=== PATIENT | male | born 1965 | race Two or more races ===

== ENCOUNTER 2017-10-07 12:33 | Inpatient (IN) | payer MEDICAID ==
[~2017-10-07] VITALS: Ht 170.2 cm; Wt 86.2 kg
--- NOTE | 2017-10-07 13:50 | NUR ---
REPORT GIVEN TO NYDIA VILLANUEVA FOR MADDIE
[2017-10-07 14:00] VITALS: BP 113/79
[2017-10-07 14:15] VITALS: BP 113/79
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
[2017-10-07] MEDS ORDERED: MAG HYDROX/AL HYDROX/SIMETH 30 ML UDC PO PRN (15:00)
[2017-10-07] MEDS ORDERED: MAGNESIUM HYDROXIDE 30 ML UDC PO PRN (15:00)
[2017-10-07] MEDS ORDERED: ACETAMINOPHEN 325 MG TABLET PO PRN (15:00)
[2017-10-07] MEDS ORDERED: HYDROCODONE/APAP 5/325MG 1 EACH TABLET PO PRN (15:00)
[2017-10-07] MEDS ORDERED: ONDANSETRON HCL/PF 4 MG/2 ML VIAL IVP PRN (15:00)
[2017-10-07] MEDS ORDERED: Z GUARD REMEDY 2 OZ OINT TP PRN (15:00)
[2017-10-07] MEDS ORDERED: ZOLPIDEM TARTRATE 5 MG TABLET PO PRN (15:00)
[2017-10-07 16:00] VITALS: BP 110/58
[2017-10-07] MEDS ORDERED: BENA40TA2 PO (16:31)
[2017-10-07] MEDS ORDERED: DIVA250T4 PO (16:31)
[2017-10-07] MEDS ORDERED: BIMA2.5D5 EACHEYE (16:31)
[2017-10-07] MEDS ORDERED: ASPI81TA2 PO (16:31)
[2017-10-07] MEDS ORDERED: CLON0.5T PO (16:31)
[2017-10-07] MEDS ORDERED: ROPI0.5T2 PO (16:31)
[2017-10-07] MEDS ORDERED: LEVO25TA9 PO (16:31)
[2017-10-07] MEDS ORDERED: clonazePAM 0.5 MG TABLET PO PRN (17:30)
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
[2017-10-07 20:00] VITALS: BP 127/74
[2017-10-07 20:02] VITALS: BP 127/74
[2017-10-07] MEDS: LATANOPROST EYE DROP 0.005% 2.5 ML BOTTLE EACHEYE SCH (21:02)
[2017-10-07] MEDS ORDERED: BIMATOPROST 2.5 ML DROPS OP SCH (22:00)
--- NOTE | 2017-10-08 06:21 | NUR ---
MS RN CLOSING NOTES PT IS IN BED RESTING, REFUSED BLOOD DRAW. LAB WILL COME BACK LATER TO TRY AGAIN. NO SIGNS OF SOB OR DISTRESS. ALL NEEDS WERE ANTICIPATED AND MET. BED IS IN LOW AND LOCKED POSITION, CALL LIGHT WITHIN REACH. WILL ENDORSE TO DAY SHIFT
--- NOTE | 2017-10-08 07:54 | NUR ---
RN OPENING NOTES RECEIVED PT. PT IS STABLE AND SLEEPING IN BED. PER RETAIL CLERK REPORT, A/OX3, HOWEVER PT IS CONFUSED. NO S/S OF DISTRESS OR SOB. NO C/O PAIN AT THIS TIME. AM LABS TO BE DRAWN IN AM. SAFETY MEASURES IN PLACE, CALL LIGHT WITHIN REACH. WILL CONTINUE TO MONITOR.
[2017-10-08 08:00] VITALS: BP 115/71
[2017-10-08] MEDS: ropiniROLE 0.5 MG TABLET PO SCH (08:35)
[2017-10-08] MEDS: ASPIRIN 81 MG TAB.CHEW PO SCH (08:35)
[2017-10-08] MEDS: BENAZEPRIL HCL 20 MG TABLET PO SCH (08:36)
[2017-10-08] MEDS: LEVOTHYROXINE SODIUM 25 MCG TABLET PO SCH (08:36)
[2017-10-08] MEDS: DIVALPROEX SODIUM 250 MG TABLET.DR PO SCH (08:38)
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
[2017-10-08 16:00] VITALS: BP 113/70
--- NOTE | 2017-10-08 18:37 | NUR ---
RN CLOSING NOTES PT IS IN ROOM RESTING IN BED. A/OX3, HOWEVER PT IS CONFUSED. 1:1 SITTER IS AT BEDSIDE. NO S/S OF SOB OR RESPIRATORY DISTRESS. PT DOES NOT APPEAR TO STILL BE AGITATED, HOWEVER CONTINUED CLOSE MONITORING IS STILL INDICATED. AWAITING PSYCH CONSULT FROM DR. NIXON. ALL PT NEEDS ANTICIPATED AND MET. SAFETY MEASURES IN PLACE, CALL LIGHT WITHIN REACH. WILL ENDORSE TO REGULATORY ANALYST FOR MADDIE.
[2017-10-08 20:00] VITALS: BP 126/78
[2017-10-08] MEDS: LATANOPROST EYE DROP 0.005% 2.5 ML BOTTLE EACHEYE SCH (21:20)
--- NOTE | 2017-10-09 06:33 | NUR ---
MS RN NOTES AWAKE & RESPONSIVE. NOT IN ANY DISTRESS. NO SOB NOTED. DENIES ANY PAIN OR DISCOMFORT AT THIS TIME. MONITORED ACCORDINGLY. CALL LIGHT WITHIN REACH. BED IN LOWEST POSITION. SR UP X 2 FOR SAFETY WITH SITTER AT BEDSIDE. WILL ENDORSE TO NEXT SHIFT.
--- NOTE | 2017-10-09 07:10 | NUR ---
RN NOTES PT IS SLEEPING COMFORTABLY IN BED, NO SIGNS OF DISTRESS NOTED. PT ON RA, RESPIRATIONS ARE EVEN AND UNLABORED. SITTER IS AT BEDSIDE. SAFETY MEASURES ARE IN PLACE, CALL LIGHT IS IN REACH. WILL CONTINUE TO MONITOR.
[2017-10-09] MEDS: LEVOTHYROXINE SODIUM 25 MCG TABLET PO SCH (07:59)
[2017-10-09 08:00] VITALS: BP 125/64
[2017-10-09] MEDS: ropiniROLE 0.5 MG TABLET PO SCH (08:00)
[2017-10-09] MEDS: BENAZEPRIL HCL 20 MG TABLET PO SCH (08:00)
[2017-10-09] MEDS: DIVALPROEX SODIUM 250 MG TABLET.DR PO SCH ×2 (08:00→16:26)
[2017-10-09] MEDS: ASPIRIN 81 MG TAB.CHEW PO SCH (08:00)
[2017-10-09 16:00] VITALS: BP 113/81
--- NOTE | 2017-10-09 18:33 | NUR ---
RN NOTES PT IS SLEEPING COMFORTABLY IN BED WITH SITTER AT BEDSIDE. PT SHOWS NO SIGNS OF AGGRESSION OR CONFUSION. PT ON RA, RESPIRATIONS ARE EVEN AND UNLABORED. ALL MEDS WERE GIVEN ORDERED AND PT NEEDS MET. SAFETY MEASURES ARE IN PLACE, CALL LIGHT IS IN REACH. WILL ENDORSE TO COMPOSITE SCIENCE TEACHER RN FOR CONTINUITY OF CARE.
[2017-10-09 20:00] VITALS: BP 124/78
[2017-10-09] MEDS: LATANOPROST EYE DROP 0.005% 2.5 ML BOTTLE EACHEYE SCH (21:06)
--- NOTE | 2017-10-10 07:01 | NUR ---
RN NOTES PT IS RESTING IN BED COMFORTABLY WITH SITTER AT BEDSIDE. PT ON RA, RESPIRATIONS ARE EVEN AND UNLABORED, NO SIGNS OF DISTRESS NOTED. SAFETY MEASURES ARE IN PLACE, CALL LIGHT IS IN REACH. WILL CONTINUE TO MONITOR.
[2017-10-10 08:00] VITALS: BP 132/76
[2017-10-10] MEDS: BENAZEPRIL HCL 20 MG TABLET PO SCH (08:21)
[2017-10-10] MEDS: ASPIRIN 81 MG TAB.CHEW PO SCH (08:21)
[2017-10-10] MEDS: LEVOTHYROXINE SODIUM 25 MCG TABLET PO SCH (08:21)
[2017-10-10] MEDS: ropiniROLE 0.5 MG TABLET PO SCH (08:21)
[2017-10-10] MEDS: DIVALPROEX SODIUM 250 MG TABLET.DR PO SCH ×2 (08:22→16:19)
[2017-10-10 13:00] VITALS: BP 151/76
[2017-10-10 16:00] VITALS: BP 120/81
--- NOTE | 2017-10-10 18:51 | NUR ---
RN NOTES PT IS SLEEPING IN BED WITH COVERS OVER HIS FACE, WITH SITTER AT BEDSIDE. PT ON RA, RESPIRATIONS ARE EVEN AND UNLABORED. ALL MEDS WERE GIVEN ORDERED AND PT NEEDS MET. SAFETY MEASURES ARE IN PLACE, CALL LIGHT IS IN REACH. WILL ENDORSE TO SHIP CONSTRUCTION TEACHER RN FOR CONTINUITY OF CARE.
--- NOTE | 2017-10-10 19:55 | NUR ---
MS RN NOTE: PATIENT RESTING IN BED, NO ACUTE DISTRESS NOTED. BREATHING EVEN AND UNLABORED, NO SOB NOTED. BED LOCKED AND IN LOWEST POSITION, CALL LIGHT IN REACH. WILL CONTINUE TO MONITOR.
[2017-10-10 20:00] VITALS: BP 118/72
[2017-10-10] MEDS: LATANOPROST EYE DROP 0.005% 2.5 ML BOTTLE EACHEYE SCH (22:52)
--- NOTE | 2017-10-11 | NUR ---
MS VILLANUEVA NOTE: REPORT GIVEN TO KAY BARRIOS FOR TRANSFER OF CARE. WILL CONTINUE TO WITH PLAN OF CARE. Addendum: 10/11/17 at 0030 by TIMBO CASTANON RN ERROR, WRONG PATIENT CHART
--- NOTE | 2017-10-11 00:30 | NUR ---
MS RN NOTE: REPORT GIVEN TO KAY GARCÍA FOR TRANSFER OF CARE. PATIENT TO BE TRANSFERRED TO ROOM 311-1. WILL CONTINUE TO WITH PLAN OF CARE.
[2017-10-11 01:00] VITALS: BP 123/71
--- NOTE | 2017-10-11 01:00 | NUR ---
MS RN OPENING NOTES: RECEIVED PT FROM MS2 FROM KAY IZQUIERDO. PT TRANSFERRED HERE TO BE ROOMED WITH A SITTER. PT IS REFUSING TO HAVE IV PUT IN. PT REFUSING TO HAVE PHOTO OF LACERATION ON HEAD TAKEN. PT COVERING HIS WHOLE BODY WITH BLANKET WELL HIS FACE. SITTER AT BEDSIDE. PT ON ROOM AIR AND TOLERATING WELL. NO S/S OF DISTRESS NOTED AT THIS TIME. NO SOB NOTED. CALL LIGHT WITHIN PT'S REACH. BED KEPT IN LOW, LOCKED POSITION, AND SIDE RAILS X 2UP. WILL CONTINUE TO MONITOR PT.
--- NOTE | 2017-10-11 07:30 | NUR ---
MS RN CLOSING NOTES: ALL NEEDS WERE ATTENDED AND ANTICIPATED FOR. SITTER AT BEDSIDE. PT IS REFUSING TO HAVE IV PUT IN. PT REFUSED AM LABS THIS MORNING. PT REFUSING TO HAVE PHOTO OF LACERATION ON HEAD TAKEN. PT COVERING HIS WHOLE BODY WITH BLANKET WELL HIS FACE. PT ON ROOM AIR AND TOLERATING WELL. NO S/S OF DISTRESS NOTED AT THIS TIME. NO SOB NOTED. CALL LIGHT WITHIN PT'S REACH. BED KEPT IN LOW, LOCKED POSITION, AND SIDE RAILS X 2UP. ENDORSED TO AM NURSE FOR MADDIE.
--- NOTE | 2017-10-11 07:40 | NUR ---
ms rn received on bed, sleeping w/ covered face, on one on one sitter for safety, no distress noted, will monitor patient's condition,all needs attended.
[2017-10-11 08:00] VITALS: BP 107/73
--- NOTE | 2017-10-11 09:20 | NUR ---
ms carpenter breakfast served,due meds given,tolerated well.
[2017-10-11] MEDS: LEVOTHYROXINE SODIUM 25 MCG TABLET PO SCH (09:53)
[2017-10-11] MEDS: ASPIRIN 81 MG TAB.CHEW PO SCH (09:53)
[2017-10-11] MEDS: DIVALPROEX SODIUM 250 MG TABLET.DR PO SCH ×2 (09:53→17:29)
[2017-10-11] MEDS: ropiniROLE 0.5 MG TABLET PO SCH (09:53)
[2017-10-11] MEDS: BENAZEPRIL HCL 20 MG TABLET PO SCH (09:55)
[2017-10-11 16:00] VITALS: BP 107/72
--- NOTE | 2017-10-11 17:00 | NUR ---
MS RN ON BED, DUE MEDS GIVEN.
--- NOTE | 2017-10-11 18:00 | NUR ---
MS RN ON BED, NO CHANGE OF CONDITION, WILL ENDORSE TO MACHINE DRILLER FOR MADDIE.
--- NOTE | 2017-10-11 19:20 | NUR ---
MS/RN NOTES RECEIVED PT. LYING IN BED. PT. IS AWAKE, ALERT AND ORIENTED X3. BREATHING EVEN AND UNLABORED ON ROOM AIR. NO SOB, RESPIRATORY DISTRESS OR COMPLAINTS OF PAIN NOTED AT THIS TIME. PT. REFUSING IV INSERTION, PER DAYSHIFT NURSE AWARE. PT. WITH 1:1 SITTER PRESENT AT BEDSIDE. BED LOCKED AND IN LOWEST POSITION, SIDE RAILS UP X2, CALL LIGHT WITHIN REACH, WILL CONTINUE TO MONITOR.
[2017-10-11 20:00] VITALS: BP 106/71
[2017-10-11] MEDS: LATANOPROST EYE DROP 0.005% 2.5 ML BOTTLE EACHEYE SCH (22:23)
--- NOTE | 2017-10-12 06:31 | NUR ---
MS/RN NOTES PT. IS LYING IN BED RESTING. BREATHING EVEN AND UNLABORED ON ROOM AIR. NO SOB, RESPIRATORY DISTRESS OR COMPLAINTS OF PAIN NOTED AT THIS TIME. PT. REMAINS WITH NO IV ACCESS, MD AWARE. ALL PT. NEEDS MET. ALL DUE MEDICATIONS. BED LOCKED AND IN LOWEST POSITION, SIDE RAILS UP X2, CALL LIGHT WITHIN REACH, WILL ENDORSE TO DAYSHIFT NURSE FOR CONTINUITY OF CARE.
--- NOTE | 2017-10-12 07:30 | NUR ---
MS RN RECEIVED ON BED, AWAKE,ALERT,ORIENTED X2,NOT IN ANY FORM OF DISTRESS,RESPIRATIONS EVEN ANDUNLABORED,NO SOB NOTED, LUNGS ARE CLEAR,ABDOMEN SOFT,POSITIVE BOWEL SOUNDS, DENIES PAIN AT THIS TIME,ALL NEEDS ATTENDED.
[2017-10-12 08:00] VITALS: BP 109/68
[2017-10-12] MEDS: DIVALPROEX SODIUM 250 MG TABLET.DR PO SCH ×2 (08:35→17:03)
[2017-10-12] MEDS: LEVOTHYROXINE SODIUM 25 MCG TABLET PO SCH (08:35)
[2017-10-12] MEDS: BENAZEPRIL HCL 20 MG TABLET PO SCH (08:35)
[2017-10-12] MEDS: ropiniROLE 0.5 MG TABLET PO SCH (08:35)
[2017-10-12] MEDS: ASPIRIN 81 MG TAB.CHEW PO SCH (08:36)
--- NOTE | 2017-10-12 09:00 | NUR ---
MS VILLANUEVA BREAKFAST SERVED,DUE MEDS GIVEN,TOLERATED WELL.
--- NOTE | 2017-10-12 10:16 | NUR ---
MS RN ON BED, WAITING FOR DISCHARGE.
[2017-10-12 16:00] VITALS: BP 102/62
--- NOTE | 2017-10-12 18:41 | NUR ---
MS RN ON BED, NO CHANGE OF CONDITION, WAITING FOR DISCHARGE.
[2017-10-12 20:16] VITALS: BP 109/64
[2017-10-12] MEDS: LATANOPROST EYE DROP 0.005% 2.5 ML BOTTLE EACHEYE SCH (21:45)
--- NOTE | 2017-10-13 03:30 | NUR ---
RN NOTES RECEIVED REPORT FROM KAY TINEO. WILL CONTINUE TO MONITOR PT. PT AWAITING D/C TO [facility].
--- NOTE | 2017-10-13 06:40 | NUR ---
PT WAS PICKED UP BY TRANSPORT VIA GURNEY. PT V/S ARE STABLE. NO COMPLAINTS OF PAIN OR DISCOMFORT. ALL PT BELONGINGS TAKEN WITH PT. DISCHARGE PAPERWORK TAKEN WITH PT. PT WILL BE RETURNING TO [facility].
== END 2017-10-13 06:43 | DRG 816 ==
LOC: EDBD 12:34 → ER 12:34 → MEDSG2 13:59 → MED 10-11 00:45
PROVIDERS: ADMIT Internal Medicine; ATTEND Internal Medicine
DX: T59.811A Toxic effect of smoke, accidental (unintentional), initial encounter (principal); F31.63 Bipolar disorder, current episode mixed, severe, without psychotic features; I10 Essential (primary) hypertension; I69.354 Hemiplegia and hemiparesis following cerebral infarction affecting left non-dominant side; J44.9 Chronic obstructive pulmonary disease, unspecified; G40.909 Epilepsy, unspecified, not intractable, without status epilepticus; Y92.129 Unspecified place in nursing home as the place of occurrence of the external cause; F41.9 Anxiety disorder, unspecified; R06.03 Acute respiratory distress; E03.9 Hypothyroidism, unspecified; E11.9 Type 2 diabetes mellitus without complications
CPT/HCPCS: 87081-TC; A4606; J7030; Z7610